=== PATIENT | female | born 1985 | race Caucasian/White ===

== ENCOUNTER 2018-08-17 17:33 | Emergency (ER) | payer BC ==
--- NOTE | 2018-08-17 17:35 | PDOC ---
History of Present Illness - General History Source: Patient Exam Limitations: No Limitations - History of Present Illness Initial Comments: 08/17/18 17:48 The patient is a 32 year old female presents to the emergency department complaining of an injury. The patient reports she has a small laceration to the L. palm. The patient presents after nicking the L. palm of the hand with her knife, while she was cutting food. The patient reports her last tetanus shot was in 2015. Allergies: NKA PCP: Dr. Begum. <Tammy Vick - Last Filed: 08/17/18 17:48> <Sonido Odell - Last Filed: 08/17/18 18:02> - General Chief Complaint: Laceration Stated Complaint: LEFT HAND LACERATION Time Seen by Provider: 08/17/18 17:34 Past History <Tammy Vick - Last Filed: 08/17/18 17:48> - Past Medical History GI Disorders: Yes (GALLSTONES) Psychiatric Problems: Yes (DEPRESSION /ANXIETY) - Immunization History Td Vaccination: Yes Immunization Up to Date: (UNSURE) - Suicide/Smoking/Psychosocial Hx Smoking Status: Yes Smoking History: Current every day smoker Have you smoked in the past 12 months: Yes Number of Cigarettes Smoked Daily: 5 'Breaking Loose' booklet given: 11/01/14 Hx Alcohol Use: Yes (OCCASIONAL) Drug/Substance Use Hx: No Substance Use Type: None Hx Substance Use Treatment: No <Sonido Odell - Last Filed: 08/17/18 18:02> - Past Medical History Allergies/Adverse Reactions: Allergies Allergy/AdvReac Type Severity Reaction Status Date / Time No Known Allergies Allergy Verified 08/17/18 17:34 Home Medications: Ambulatory Orders Clonazepam [Klonopin] 2 mg PO ASDIR PRN 11/01/14 Lamotrigine [Lamictal] 200 mg PO HS 11/01/14 Control Pill 1 tab PO ASDIR 08/17/18 Dextroamphetamine/Amphetamine [Adderall Xr 25 mg Capsule] 25 mg PO BID 08/17/18 Quetiapine Fumarate [Seroquel] 100 mg PO HS 08/17/18 Sertraline HCl 50 mg PO AM 08/17/18 Trazodone HCl 150 mg PO HS 08/17/18 Review of Systems - Review of Systems Comments:: 08/17/18 17:39 Constitutional: Yes: Symptoms Reported, See HPI, Night Sweats. No: Chills, Diaphoresis, Fever, Loss of Appetite, Malaise, Weakness, Weight Stable, Unintentional Wgt. Loss, Unexplained wgt Loss, Other HEENTM: Yes: Symptoms Reported, See HPI. No: Eye Pain, Blurred Vision, Tearing , Recent change in vision, Double Vision, Cataracts, Ear Pain, Ocular Prothesis , Ear Discharge, Nose Pain, Nose Congestion, Tinnitus, Nose Bleeding, Hearing Loss, Throat Pain, Throat Swelling, Mouth Pain, Dental Problems, Difficulty Swallowing, Mouth Swelling, Other Respiratory: Yes: Symptoms reported, See HPI. No: Cough, Orthopnea, Shortness of Breath, SOB with Exertion, SOB at Rest, Stridor, Wheezing, Productive cough, Hemoptysis, Other Cardiac (ROS): Yes: Symptoms Reported, See HPI. No: Chest Pain, Edema, Irregular Heart Rate, Lightheadedness, Palpitations, Syncope, Chest Tightness, Other ABD/GI: Yes: Symptoms Reported, See HPI. No: Abdominal Distended, Abd. Pain w/ defecation, Blood Streaked Bowels, Constipated, Diarrhea, Difficulty Swallowing , Nausea, Poor Appetite, Poor Fluid Intake, Rectal Bleeding, Vomiting, Indigestion, Abdominal cramping, Tarry Stools, Other : Yes: Symptoms Reported, See HPI Musculoskeletal: Yes:(+) small laceration to the L. palm. Symptoms Reported, See HPI. No: Back Pain, Gout, Joint Pain, Joint Swelling, Muscle Pain, Muscle Weakness, Neck Pain, Joint Stiffness, Other Integumentary: Yes: Symptoms Reported, See HPI. No: Bruising, Change in Color, Change in Hair/Nails, Dryness, Erythema, Flushing, Lesions, Lumps, Pallor, Pruritus, Rash, Sweating, Other Neurological: Yes: Symptoms reported, See HPI. No: Headache, Numbness, Paresthesia, Pre-Existing Deficit, Seizure, Tingling, Tremors, Weakness, Unsteady Gait, Ataxia, Dizziness, Other All Other Systems: Reviewed and Negative <Tammy Vick - Last Filed: 08/17/18 17:48> *Physical Exam - Physical Exam Comments: 08/17/18 17:40 General Appearance: Yes: Appropriately Dressed, Nourished. No: Apparent Distress, Disheveled, Mild Distress, Moderate Distress, Severe Distress, Alcohol on Breath, Intoxicated, Cachetic, Obese, Thin, Other HEENT: positive: EOMI, VENITA, Normal ENT Inspection, Normal Voice, TMs Normal, Pharynx Normal. negative: Symmetrical, Pale Conjunctivae, Photophobia, Scleral Icterus (R), Scleral Icterus (L), Muffled/Hoarse voice, Pharyngeal Erythema, Tonsillar Exudate, Tonsillar Erythema, Nasal Congestion, Rhinorrhea, Sinus Tenderness, Orbits, Hearing Decreased, Hearing Grossly Normal, TM Bulging, TM Dull, TM Erythema, Lesions, Hernandez, Excessive drooling, Thrush, Other Neck: positive: Trachea midline, Normal Thyroid, Supple. negative: Tender, Rigid, Carotid bruit, Decreased range of motion, Stridor, Lymphadenopathy (R), Lymphadenopathy (L), Rigidity, Tender lateral, Tender midline, Thyromegaly, Other Respiratory/Chest: positive: Lungs Clear, Normal Breath Sounds. negative: Accessory Muscle Use, Chest Tender, Respiratory Distress, Labored Respiration, Rapid RR, Decreased Breath Sounds, Paradoxal Breathing, Crackles, Rales, Rhonchi , Stridor, Wheezing, Dullness, Hyperresonant, Plerual Rub, Other Cardiovascular: positive: Regular Rate, Regular Rhythm, S1, S2. negative: Edema , JVD, Murmur, Bradycardia, Tachycardia, Diastolic Murmur, Systolic Murmur, Gallop/S3, Gallop/S4, Irregularly Irregular, Irregular, Other Vascular Pulses: Femoral (R): 4+, Femoral (L): 4+, Carotid (R): 4+, Carotid (L) : 4+, Dorsalis-Pedis (R): 4+, Doralis-Pedis (L): 4+ Gastrointestinal/Abdominal: positive: Normal Bowel Sounds, Flat, Soft. negative : Tender, Organomegaly, Pulsatile Mass, Increased Bowel Sounds, Decreased BS, Protuberent, Distended, Guarding, Rebound, Tenderness, Hernia, Mass, Hepatomegaly, Spleenomegaly, Other Lymphatic: negative: Adenopathy, Tenderness, Other Musculoskeletal: positive: Normal Inspection. negative: CVA Tenderness, CVA Tenderness (R), CVA Tenderness (L), Decreased Range of Motion, Muscle Spasm, Vertebral Tenderness, Other Extremity: positive:(+) 1 CM superficial laceration to the L. Thenar eminence, nonbleeding, opposition intact. No swelling, normal ROM. Normal Capillary Refill, Normal Inspection, negative: Tender, Pelvis Stable, Coldness, Cyanosis, Delayed Capillary Refill, Pedal Edema, Swelling, Calf Tenderness, Erythema, Inflammation, Other Integumentary: positive: Neurovascular intact to the L. hand. Normal Color, Dry , Warm. negative: Cyanotic, Erythema, Jaundice, Mottled, Pale, Cold, Clammy, Diaphoresis, Moist, Hives, Petechiae, Rash, Swelling, Ecchymosis, Bruising, Other Neurologic: positive: inspector plating II-XII NML intact, Fully Oriented, Alert, Normal Mood/ Affect, Normal Response, Motor Strength 5/5. negative: Abnormal Cranial NS, Respond to painful stimul, Responsive, EOM Palsy, Facial Droop, Numbness, Sensory Deficit, Finger to Nose, Confused, Disoriented, Depressed Affect, Babinski, Other <Tammy Vick - Last Filed: 08/17/18 17:48> Progress Note - Progress Note Progress Note: Pt with 1 cm laceration to left thenar emminence left palm Pulses, opposition intact, no swelling or tenderness Procedure: Dermabond and 1 steri strip used Pt tolerated procedure well Pt in agreement with plan <Sonido Odell - Last Filed: 08/17/18 18:02> *DC/Admit/Observation/Transfer - Attestations Scribe Attestion: 08/17/18 17:42 Documentation prepared by Tammy Vick, acting as medical care administrator for Sonido Odell MD. <Tammy Vick - Last Filed: 08/17/18 17:48> - Discharge Dispostion Decision to Admit order: No <Sonido Odell - Last Filed: 08/17/18 18:02> Diagnosis at time of Disposition: Laceration of left palm Qualifiers: Encounter type: initial encounter Qualified Code(s): S61.412A - Laceration without foreign body of left hand, initial encounter - Discharge Dispostion Disposition: HOME Condition at time of disposition: Improved - Referrals Referrals: Maggy Begum MD [Primary Care Provider] - - Patient Instructions Printed Discharge Instructions: DI for Laceration Repair With Dermabond Additional Instructions: Keep dry for 48 hrs If red, swollen, fever or tender return to ER - Post Discharge Activity
[2018-08-17 17:45] VITALS: BP 122/78; PULSE 83; TEMP 98.4; BMI 22.5
== END 2018-08-17 18:15 | disposition home or self-care (01) ==
LOC: FER 17:33
PROC: 0HQGXZZ Repair Left Hand Skin, External Approach (ICD-10-PCS; principal; 2018-08-17)
DX: S61.412A Laceration without foreign body of left hand, initial encounter (principal); W26.0XXA Contact with knife, initial encounter; Y93.89 Activity, other specified; Y92.008 Other place in unspecified non-institutional (private) residence as the place of occurrence of the external cause
CPT/HCPCS: 12001; 99284-25

== ENCOUNTER 2020-10-13 12:00 | Emergency (ER) | payer BC | END 2020-10-13 12:47 | disposition home or self-care (01) | LOC: JVIRT 12:00 | DX: U07.1 COVID-19 (principal) | CPT/HCPCS: C9803; Q3014-GT; U0003 ==

== ENCOUNTER 2020-10-25 10:41 | Emergency (ER) | payer BC | END 2020-10-25 11:19 | disposition home or self-care (01) | LOC: JVIRT 10:41 | DX: Z03.818 Encounter for observation for suspected exposure to other biological agents ruled out (principal) | CPT/HCPCS: 36415; 86769; C9803; G2012-GT; Q3014-GT; U0003 ==

== ENCOUNTER 2020-12-09 14:48 | Emergency (ER) | payer BC | END 2020-12-09 16:25 | disposition home or self-care (01) | LOC: JVIRT 14:48 | DX: Z11.59 Encounter for screening for other viral diseases (principal) | CPT/HCPCS: 36415; 86769; C9803; G2012-GT; U0003 ==

== ENCOUNTER 2020-12-23 12:51 | Emergency (ER) | payer BC | END 2020-12-23 13:21 | disposition home or self-care (01) | LOC: JVIRT 12:51 | DX: Z11.52 Encounter for screening for COVID-19 (principal) | CPT/HCPCS: C9803; G2012-GT; U0003 ==

== ENCOUNTER 2023-02-12 10:20 | Emergency (ER) | payer BC ==
[2023-02-12 10:30] VITALS: BP 120/87; TEMP 97.8; BMI 24.3
[2023-02-12] MEDS ORDERED: SODIUM CHLORIDE 0.9% 1000 ML INFUS.BAG IV ONE (10:36)
[2023-02-12] MEDS ORDERED: ACETAMINOPHEN 1000 MG/100 ML BAG IVPB ONE (10:36)
[2023-02-12] MEDS ORDERED: ONDANSETRON 4 MG/2 ML VIAL IVPUSH ONE (10:36)
[2023-02-12] MEDS ORDERED: FAMOTIDINE 20 MG/50 ML IVPB 20 MG/50 ML MG IVPB ONE ×2 (10:37→10:55)
[2023-02-12] MEDS ORDERED: ONDANSETRON 4 MG/2 ML VIAL ONE (10:55)
[2023-02-12] MEDS ORDERED: ACETAMINOPHEN INJECTION 100 ML IVPB ONE (10:55)
[2023-02-12 11:27] LABS: HEMATOCRIT 42.1 % (32.4-45.2); HEMOGLOBIN 14.7 G/dL (10.7-15.3); MCH 32.3 pg (25.7-33.7); MEAN CELL VOLUME 92.4 fl (80-96); MEAN PLT VOLUME 6.7 fl (7.5-11.1); PLATELET COUNT 173.5 10^3/uL (134-434); RBC 4.56 10^6/uL (3.60-5.2); RDW 13.5 % (11.6-15.6); WHITE BLOOD COUNT 4.9 10^3/uL (4.0-10.8)
[2023-02-12 11:32] LABS: ALBUMIN 3.9 g/dl (3.4-5.0); BILIRUBIN,TOTAL 0.7 mg/dl (0.2-1); CALCIUM 8.6 mg/dl (8.5-10); CREATININE 0.8 mg/dl (0.55-1.3); TOT PROT 6.4 g/dl (6.4-8.2)
[2023-02-12] MEDS ORDERED: POTASSIUM CHLORIDE TABS 20 MEQ TABLET.ER (FP) PO ONE ×2 (12:13→12:27)
[2023-02-12 12:46] VITALS: PULSE 98; RESP 16
== END 2023-02-12 12:40 | disposition home or self-care (01) ==
LOC: FER 10:20
PROC: 3E033GC Introduction of Other Therapeutic Substance into Peripheral Vein, Percutaneous Approach (ICD-10-PCS; principal; 2023-02-12)
DX: K52.9 Noninfective gastroenteritis and colitis, unspecified (principal)
CPT/HCPCS: 0241U-QW; 36415; 80053; 85027; 99284-25